=== PATIENT | female | born 1995 | race Hispanic/Latino ===

== ENCOUNTER 2020-10-23 13:56 | Observation (INO) | payer OTHER ==
[2020-10-23 14:21] VITALS: BMI 42.1
[2020-10-23] MEDS ORDERED: hydrALAZINE 20 MG/ML VIAL SLOW IVP PRN ×2 (14:30→16:04)
[2020-10-23] MEDS: Lactated Ringer's 1,000 ML IV SCH ×3 (14:36→20:00)
[2020-10-23] MEDS ORDERED: Ondansetron PF 4 MG/2 ML Vial IVP PRN (16:04)
[2020-10-23] MEDS ORDERED: Promethazine HCl 25 MG/ML VIAL IM PRN (16:04)
[2020-10-23] MEDS ORDERED: Lactated Ringer's 1,000 ML IV PRN (16:04)
[2020-10-23] MEDS ORDERED: Acetaminophen 500 MG TAB PO PRN (16:04)
[2020-10-24] MEDS: Lactated Ringer's 1,000 ML IV SCH (05:34)
== END 2020-10-24 08:50 | disposition home health service (06) ==
LOC: CSHLD/OP 13:56 → CSHLD 16:31 → UNDOADMOB 21:13 → CSHLD 21:13 → UNDODISOB 10-24 08:50
PROVIDERS: ADMIT Family Medicine; ATTEND Family Medicine
DX: O99.891 Other specified diseases and conditions complicating pregnancy (principal); R10.31 Right lower quadrant pain; O24.410 Gestational diabetes mellitus in pregnancy, diet controlled; Z3A.34 34 weeks gestation of pregnancy; Z79.82 Long term (current) use of aspirin; Z79.84 Long term (current) use of oral hypoglycemic drugs; Z88.0 Allergy status to penicillin; W10.8XXA Fall (on) (from) other stairs and steps, initial encounter
CPT/HCPCS: 99285; G0378

== ENCOUNTER 2022-03-07 16:40 | Emergency (ER) | payer OTHER ==
[2022-03-07 17:33] LABS: Bilirubin Neg (Negative); Blood, Urine Negative (Negative); Clarity Clear (Clear); Glucose, Urine (Dipstick) Normal (Negative); Ketone, Urine Negative (Negative); Leukocyte Negative (Negative); Nitrite Negative (Negative); Protein, Urine (Dipstick) Negative (Neg-Trace); Specific Gravity, Urine 1.015 (1.002-1.036); Urobilinogen Normal mg/dL (Less than 2); pH, Urine 6.5 (5.0-9.0)
[2022-03-07 18:45] LABS: #Eosinphils 0.1 10x3/uL (0.0-0.5); #Monocytes 0.5 10x3/uL (0.0-1.1); #Neutrophils 3.7 10x3/uL (1.5-8.4); %Basophils 0.6 % (0.0-2.0); %Eosinophils 1.1 % (0.0-6.0); %Lymphocytes 20.8 % (18.0-47.0); %Monocytes 8.9 % (0.0-10.0); Hemoglobin 11.3 g/dL (12.0-15.5); Mean Corpuscular HGB CONC 32.7 g/dL (32.0-36.0); Mean Corpuscular Hemoglobin 27.1 pg (27.0-33.0); Mean Platelet Volume 9.5 fl (7.4-10.4); Platelet Count 278 10x3/uL (150-450); RBC Distribution Width 14.3 % (11.5-14.5); Red Blood Cell (RBC) Count 4.17 10x6/uL (3.90-5.03); White Blood Cell (WBC) Count 5.4 10x3/uL (3.5-10.5)
[2022-03-07 18:54] LABS: ALT (SGPT) 20 U/L (8-55); AST (SGOT) 13 U/L (5-34); Albumin 3.8 g/dL (3.5-5.0); Alkaline Phosphatase 61 U/L (40-110); Anion Gap 13 mmol/L (10-20); BUN (Urea Nitrogen) 5 mg/dL (7.0-18.7); Bilirubin, Total 0.2 mg/dL (0.2-1.2); Calc. Creatinine Clearance 0 mL/min (70-130); Calcium 9.4 mg/dL (7.8-10.44); Carbon Dioxide 25 mmol/L (22-29); Chloride 104 mmol/L (98-107); Estimated GFR 125; Glucose 95 mg/dL (70-105); Potassium 3.8 mmol/L (3.5-5.1); Protein, Total 6.8 g/dL (6.0-8.3); Sodium 138 mmol/L (136-145)
== END 2022-03-07 20:05 | disposition home or self-care (01) ==
LOC: CSHERS 16:40
DX: O98.512 Other viral diseases complicating pregnancy, second trimester (principal); U07.1 COVID-19; Z3A.16 16 weeks gestation of pregnancy
CPT/HCPCS: 36415; 76805; 80053; 81003; 85025; 86900; 86901

== ENCOUNTER 2022-08-15 05:10 | Inpatient (IN) | payer OTHER ==
[2022-08-14 12:06] LABS: Hemoglobin 11.2 g/dL (12.0-15.5); Platelet Count 309 10x3/uL (150-450)
[2022-08-14 12:36] LABS: SARS-CoV-2 NAA Rapid Test Not Detected (NotDetected)
[2022-08-14 12:42] LABS: HBSAg Index 0.12 S/CO (0-0.99); Hep B Surf Ag Non-Reactive S/CO (NonReactive)
[2022-08-14 12:44] LABS: Syphilis Antibody Nonreactive (Nonreactive); Syphilis Antibody Index 0.02 S/CO (<1.00 Non-Reactive)
[2022-08-15 05:34] VITALS: BMI 41.0
[2022-08-15] MEDS ORDERED: Misoprostol 200 MCG TAB RC PRN (06:45)
[2022-08-15] MEDS ORDERED: Acetaminophen 500 MG TAB PO PRN (06:45)
[2022-08-15] MEDS ORDERED: Clindamycin/D5W 900 MG in Premix Bag 1 BAG IVPB SCH (06:45)
[2022-08-15] MEDS ORDERED: Ibuprofen 800 MG TAB PO PRN (06:45)
[2022-08-15] MEDS ORDERED: NS w/ Oxytocin 30 units 500 ML IV SCH ×2 (06:45→09:15)
[2022-08-15] MEDS ORDERED: HYDROcodone/Acetaminophen 5/325 mg Tablet PO PRN ×4 (06:45→09:10)
[2022-08-15] MEDS ORDERED: Butorphanol Tartrate 1 MG/ML VIAL SLOW IVP PRN (06:45)
[2022-08-15] MEDS ORDERED: Fleet Enema 133 ML BOT PR ONE (06:45)
[2022-08-15] MEDS ORDERED: Carboprost 250 MCG/ML AMP IM PRN (06:45)
[2022-08-15] MEDS ORDERED: Gentamicin Sulfate 120 MG in Premix Bag 1 BAG IVPB SCH (06:45)
[2022-08-15] MEDS ORDERED: Diphenoxylate HCl/Atropine Tablet PO PRN ×2 (06:45)
[2022-08-15] MEDS ORDERED: Lidocaine 1% (PF) 30 ML VIAL SC PRN (06:45)
[2022-08-15] MEDS ORDERED: NS w/ Oxytocin 30 units 500 ML IVPB SCH (06:45)
[2022-08-15] MEDS: Lactated Ringer's 1,000 ML IV SCH (07:01)
[2022-08-15] MEDS ORDERED: Fentanyl 2 mcg/Bup 0.1% Cadd 100 ML ONE (07:07)
[2022-08-15] MEDS ORDERED: Mineral Oil ENEMA ONE (07:07)
[2022-08-15] MEDS ORDERED: Terbutaline Sulfate 1 MG/ML VIAL ONE ×2 (07:25→08:00)
[2022-08-15] MEDS ORDERED: Famotidine/PF 20 mg/2ml Vial ONE (07:32)
[2022-08-15] MEDS ORDERED: Ondansetron PF 4 MG/2 ML Vial ONE (07:32)
[2022-08-15] MEDS ORDERED: Bupivacaine/Epinephrine 0.25% 30 ML VIAL ONE (08:00)
[2022-08-15] MEDS ORDERED: Lidocaine 2% PF 5 ML VIAL ONE (08:00)
[2022-08-15] MEDS ORDERED: Bupivacaine PF 0.5% 30 ML VIAL ONE (08:00)
[2022-08-15] MEDS ORDERED: Promethazine HCl 25 MG/ML VIAL IM PRN (09:02)
[2022-08-15] MEDS ORDERED: diphenhydrAMINE 50 MG/ML VIAL IVP PRN (09:02)
[2022-08-15] MEDS ORDERED: Naloxone HCl 0.4 mg/ml Vial IVP PRN ×2 (09:02)
[2022-08-15] MEDS ORDERED: Ondansetron PF 4 MG/2 ML Vial IVP PRN ×2 (09:02→09:10)
[2022-08-15] MEDS ORDERED: Moisturizing Cream (Eucerin) 113 GM JAR TOP PRN (09:02)
[2022-08-15] MEDS ORDERED: Acetaminophen 325 MG TAB PO PRN (09:02)
[2022-08-15] MEDS ORDERED: Lactated Ringer's 500 ML IV PRN (09:02)
[2022-08-15] MEDS ORDERED: Boostrix 0.5 ML (Tdap) VIAL (>/=7 yrs of age) IM ONE (09:10)
[2022-08-15] MEDS ORDERED: Lanolin Ointment 7 GM TUBE TOP PRN (09:10)
[2022-08-15] MEDS ORDERED: Zolpidem Tartrate 5 MG TAB PO PRN (09:10)
[2022-08-15] MEDS ORDERED: Preparation H Ointment 28 GM TUBE PR PRN (09:10)
[2022-08-15] MEDS ORDERED: Benzocaine-Menthol 82.5 ML CAN TOP PRN (09:10)
[2022-08-15] MEDS ORDERED: Milk Of Magnesia 30 ML UDCUP PO PRN (09:10)
[2022-08-15] MEDS ORDERED: Bisacodyl 10 MG SUPP PR PRN (09:10)
[2022-08-15] MEDS ORDERED: hydrALAZINE 20 MG/ML VIAL SLOW IVP PRN (09:10)
[2022-08-15] MEDS ORDERED: diphenhydrAMINE 25 MG CAP PO PRN (09:10)
[2022-08-15] MEDS ORDERED: Misoprostol 200 MCG TAB VAG PRN (09:10)
[2022-08-15] MEDS ORDERED: Witch Hazel-Glycerin 1 EACH JAR TOP PRN (09:12)
[2022-08-15] MEDS ORDERED: Communication Order-Pharmacy FS SCH (09:15)
[2022-08-15] MEDS: ePHEDrine Sulfate 50 MG/10 ML VIAL SLOW IVP PRN ×2 (09:49→09:59)
[2022-08-15] MEDS: Fentanyl 2 mcg/Bupivacaine 0.1% Cassette 100 ML EPIDURAL SCH ×2 (16:24→23:10)
[2022-08-15] MEDS ORDERED: Fentanyl 100 MCG/2 ML VIAL ONE (19:47)
[2022-08-16] MEDS ORDERED: Fentanyl 100 MCG/2 ML VIAL ONE ×3 (00:33→08:04)
[2022-08-16 04:53] LABS: Hemoglobin 11.7 g/dL (12.0-15.5); Mean Corpuscular HGB CONC 32.7 g/dL (32.0-36.0); Mean Corpuscular Hemoglobin 25.4 pg (27.0-33.0); Mean Corpuscular Volume 77.8 fl (81.6-98.3); Mean Platelet Volume 9.8 fl (7.4-10.4); Platelet Count 290 10x3/uL (150-450); RBC Distribution Width 17.1 % (11.5-14.5); White Blood Cell (WBC) Count 21.2 10x3/uL (3.5-10.5)
[2022-08-16] MEDS: Fentanyl 2 mcg/Bupivacaine 0.1% Cassette 100 ML EPIDURAL SCH (06:46)
[2022-08-16] MEDS ORDERED: Gentamicin Sulfate 80 MG in Premix Bag 1 BAG IVPB SCH ×2 (08:15→09:00)
[2022-08-16] MEDS: Clindamycin/D5W 600 MG in Premix Bag 1 BAG IVPB SCH ×2 (08:55→15:39)
[2022-08-16] MEDS ORDERED: Methylergonovine 0.2 MG/ML VIAL ONE (11:04)
[2022-08-16] MEDS ORDERED: Lidocaine 1% (PF) 30 ML VIAL ONE (13:08)
[2022-08-16] MEDS ORDERED: Benzocaine-Menthol 82.5 ML CAN TOP PRN (13:30)
[2022-08-16] MEDS ORDERED: Lanolin Ointment 7 GM TUBE TOP PRN (13:30)
[2022-08-16] MEDS ORDERED: Boostrix 0.5 ML (Tdap) VIAL (>/=7 yrs of age) IM ONE (13:30)
[2022-08-16] MEDS ORDERED: Misoprostol 200 MCG TAB VAG PRN (13:30)
[2022-08-16] MEDS ORDERED: HYDROcodone/Acetaminophen 5/325 mg Tablet PO PRN ×2 (13:30)
[2022-08-16] MEDS ORDERED: diphenhydrAMINE 25 MG CAP PO PRN (13:30)
[2022-08-16] MEDS ORDERED: NS w/ Oxytocin 30 units 500 ML IV SCH (13:30)
[2022-08-16] MEDS ORDERED: Bisacodyl 10 MG SUPP PR PRN (13:30)
[2022-08-16] MEDS ORDERED: Zolpidem Tartrate 5 MG TAB PO PRN (13:30)
[2022-08-16] MEDS ORDERED: Preparation H Ointment 28 GM TUBE PR PRN (13:30)
[2022-08-16] MEDS ORDERED: Milk Of Magnesia 30 ML UDCUP PO PRN (13:30)
[2022-08-16] MEDS ORDERED: Ondansetron PF 4 MG/2 ML Vial IVP PRN (13:30)
[2022-08-16] MEDS ORDERED: hydrALAZINE 20 MG/ML VIAL SLOW IVP PRN (13:30)
[2022-08-16] MEDS ORDERED: Witch Hazel-Glycerin 1 EACH JAR TOP PRN (13:32)
[2022-08-16] MEDS: Ferrous Sulfate 325 MG TAB PO SCH ×2 (17:27→17:29)
[2022-08-16] MEDS: Ibuprofen 800 MG TAB PO SCH ×3 (17:27→22:18)
[2022-08-16] MEDS: Docusate 100 MG CAP PO SCH ×3 (17:29→22:18)
[2022-08-16] MEDS: Lactated Ringer's 1,000 ML IV SCH (17:29)
[2022-08-17] MEDS: Ibuprofen 800 MG TAB PO SCH ×3 (05:48→21:44)
[2022-08-17] MEDS: Ferrous Sulfate 325 MG TAB PO SCH ×2 (09:38→16:10)
[2022-08-17] MEDS: Prenatal Vitamin 1 TAB PO SCH (09:45)
[2022-08-17] MEDS: Docusate 100 MG CAP PO SCH ×2 (09:45→21:44)
[2022-08-18] MEDS: Ibuprofen 800 MG TAB PO SCH ×3 (05:50→22:02)
[2022-08-18] MEDS: Docusate 100 MG CAP PO SCH ×2 (09:08→22:02)
[2022-08-18] MEDS: Prenatal Vitamin 1 TAB PO SCH (09:08)
[2022-08-18] MEDS: Ferrous Sulfate 325 MG TAB PO SCH ×2 (09:09→16:45)
[2022-08-19] MEDS: Ibuprofen 800 MG TAB PO SCH (06:15)
[2022-08-19] MEDS: Ferrous Sulfate 325 MG TAB PO SCH (07:46)
[2022-08-19] MEDS: Docusate 100 MG CAP PO SCH (08:34)
[2022-08-19] MEDS: Prenatal Vitamin 1 TAB PO SCH (08:34)
[2022-08-19 09:04] VITALS: BP 114/66; TEMP 98.8
== END 2022-08-19 11:34 | disposition home or self-care (01) | DRG 806 ==
LOC: CSHLD 05:10 → SCHOBSVTOIN 14:18 → CSHPP 08-16 16:42
PROVIDERS: ADMIT Obstetrics & Gynecology; ATTEND Obstetrics & Gynecology
PROC: 10D07Z6 Extraction of Products of Conception, Vacuum, Via Natural or Artificial Opening (ICD-10-PCS; principal; 2022-08-16)
PROC: 0HQ9XZZ Repair Perineum Skin, External Approach (ICD-10-PCS; 2022-08-16)
PROC: 10907ZC Drainage of Amniotic Fluid, Therapeutic from Products of Conception, Via Natural or Artificial Opening (ICD-10-PCS; 2022-08-16)
PROC: 3E033VJ Introduction of Other Hormone into Peripheral Vein, Percutaneous Approach (ICD-10-PCS; 2022-08-16)
DX: O32.1XX0 Maternal care for breech presentation, not applicable or unspecified (principal); O99.354 Diseases of the nervous system complicating childbirth; Z37.0 Single live birth; O70.0 First degree perineal laceration during delivery; O63.0 Prolonged first stage (of labor); D64.9 Anemia, unspecified; F43.10 Post-traumatic stress disorder, unspecified; F41.9 Anxiety disorder, unspecified; F32.A Depression, unspecified; O99.02 Anemia complicating childbirth; G43.909 Migraine, unspecified, not intractable, without status migrainosus; O99.344 Other mental disorders complicating childbirth; Z20.822 Contact with and (suspected) exposure to COVID-19; Z3A.39 39 weeks gestation of pregnancy; Z79.899 Other long term (current) drug therapy; Z90.49 Acquired absence of other specified parts of digestive tract; Z88.0 Allergy status to penicillin; Z79.82 Long term (current) use of aspirin; Z86.16 Personal history of COVID-19
CPT/HCPCS: 51702; 85014; 85018; 85027; 85049; 86780; 86850; 86900; 86901; 87340; J1200; J1580; J2001; J2405; J2590; J3010; J3105; J3490; J7120; S0020; U0002

== ENCOUNTER 2022-10-16 19:51 | Emergency (ER) | payer OTHER | END 2022-10-16 23:55 | disposition home or self-care (01) | LOC: CSHERS 19:51 | DX: J02.9 Acute pharyngitis, unspecified (principal); R50.9 Fever, unspecified | CPT/HCPCS: 87081; 87430; 99283 ==

== ENCOUNTER 2024-06-15 08:30 | Outpatient (CLI) | payer BC | END 2024-06-15 08:31 | disposition home or self-care (01) | LOC: CSHSLEEP 08:30 | PROVIDERS: ATTEND Family Medicine | DX: G47.33 Obstructive sleep apnea (adult) (pediatric) (principal); R53.83 Other fatigue; F32.A Depression, unspecified; F41.9 Anxiety disorder, unspecified; E66.9 Obesity, unspecified; Z68.38 Body mass index [BMI] 38.0-38.9, adult; R06.83 Snoring | CPT/HCPCS: 95810 ==

== ENCOUNTER 2024-07-23 08:21 | Outpatient (CLI) | payer BC | END 2024-07-23 08:22 | disposition home or self-care (01) | LOC: CSHSLEEP 08:21 | PROVIDERS: ATTEND Family Medicine | DX: G47.33 Obstructive sleep apnea (adult) (pediatric) (principal); R53.83 Other fatigue; F32.A Depression, unspecified; F41.9 Anxiety disorder, unspecified; E66.9 Obesity, unspecified; Z68.38 Body mass index [BMI] 38.0-38.9, adult; R06.83 Snoring | CPT/HCPCS: 95811 ==